=== PATIENT | male | born 1975 | race Caucasian/White ===

== ENCOUNTER 2016-08-17 15:44 | Emergency (ER) | payer OTHER ==
[~2016-08-17] VITALS: Ht 180.3 cm; Wt 113.6 kg
--- NOTE | 2016-08-17 15:48 | ED.REPORT ---
HPI-Chest Pain Under 40 Date of Service August 17, 2016 ED Provider: Salvatore Verdugo MD A 41 year old male with a history of hypertension on Lisinopril, anxiety, GERD and smoking is referred to the ED from Urgent Care due to chest pain onset 13: 30. The pt was doing some yard work today and began experiencing left arm numbness radiating into his jaw soon after finishing. This was followed by sharp chest pain and nausea that are still ongoing. The pt also admits to a dry cough that has been present for three weeks and occasional diaphoresis, though he does not believe that the diaphoresis is related to his symptoms. The pt recently began injecting prescribed testosterone, HCG and one other substance that he cannot recall. The pt had a normal stress test two years ago. Nursing Notes Stated Complaint: CHEST PAIN Nursing Notes Reviewed: Yes Allergies: Coded Allergies: amoxicillin (Verified Adverse Reaction, Intermediate, Nausea, 08/17/16) clavulanic acid (Verified Adverse Reaction, Intermediate, Nausea, 08/17/16) Scheduled ([testosterone]) IM DAILY Bupropion ER (Wellbutrin SR) 150 Mg Tablet.er 150 MG PO DAILY Esomeprazole Magnesium (Nexium) 20 Mg Capsule.dr 20 MG PO DAILY Hydrochlorothiazide (Hydrochlorothiazide) 25 Mg Tablet 25 MG PO DAILY Lisinopril (Lisinopril) 5 Mg Tablet 5 MG PO DAILY Montelukast (Montelukast) 10 Mg Tablet 10 MG PO DAILY Potassium Chloride (Potassium Chloride) 10 Meq Capsule.er 10 MEQ PO DAILY TAKE WITH FOOD Venlafaxine (Venlafaxine) 75 Mg Tablet 75 MG PO DAILY Scheduled PRN Zolpidem (Ambien) 10 Mg Tablet 10 MG PO HS PRN PRN Insomnia Miscellaneous Medications ([glu]) General Time Seen by MD: 15:47 Chief Complaint Chest pain Hx Obtained From: Patient Arrived By: Walk-in Sudden in Onset?: Yes Onset Occurred: 1 - 4 hours ago Symptom Duration: Since onset Recent Healthcare: No recent doctor visit, No recent hospitalization Similar Sx Previous: No Risk Factors HEART Score HEART for MACE: Mod index of susp (1), Normal ECG (0), Age under 45 (0), 1-2 CAD risk factors (1) HEART for MACE Score: 0-3 (low risk 0.9%-1.7%) PERC Rule PERC Result: All PERC criteria "No", PERC rule satisfied Well's Criteria for PE [facility]'s PE Score: 0-2 pts (low risk 3.6%) Past Medical History Past Medical History hypertension depression GERD anxiety Past Surgical History none reported Smoking History Current Every Day Smoker Social History Alcohol Use: 1-3 per week Ambulatory Status Independent Review of Systems Respiratory: Reports: Non-productive cough Cardiovascular: Reports: Chest pain GI: Reports: Nausea, Denies: Abdominal pain Skin: Reports Diaphoresis (occasional), Denies Rash Neurologic: Reports: Numbness Complete sys rev & neg: except as marked. Physical Exam Initial Vital Signs Vital Signs (First) Date Time Temp Pulse Resp B/P Pulse Ox O2 Delivery O2 Flow Rate FiO2 08/17/16 15:50 36.2 78 12 146/90 100 Room Air Initial VS: Reviewed General/Constitutional: Awake, Alert Respiratory / Chest: Atraumatic, Breath sounds NL, Breath sounds = bilat, No respiratory distress Cardiovascular: Heart rate NL, Regular rhythm, Heart sounds NL Neck: Atraumatic, Supple, Full range of motion Abdomen: Atraumatic, Soft, Non-tender Back: Atraumatic, Full range of motion Lower Extremity / Pelvis / MS: Atraumatic, Full range of motion trace edema bilaterally Skin: Atraumatic, Color NL, No rash, Warm, Dry Neurologic: Oriented X3, Speech NL, No motor deficits, No sensory deficits Psychiatric: Affect NL, Mood NL Head / Eyes: Atraumatic, Normocephalic, PERRL, EOMI ENT: Atraumatic, Airway patent, Mucous membranes moist Upper Extremity / MS: Atraumatic, Full range of motion Interpretation & Diagnostics Lab Results Interpretation Result Diagram: 08/17/16 1600 08/17/16 1600 Test 08/17/16 16:00 08/17/16 18:10 White Blood Count 12.6th/mm3 (3.8-10.1) Red Blood Count 5.63mil/mm3 (4.40-5.80) Hemoglobin 17.3g/dL (13.8-17.2) Hematocrit 49.5% (41.0-50.0) Mean Corpuscular Volume 87.9fL (81-100) Mean Corpuscular Hemoglobin 30.7pg (27.0-35.0) Mean Corpuscular Hemoglobin Concent 34.9% (32.0-37.0) Red Cell Distribution Width 13.7% (12.3-15.4) Platelet Count 199bil/L (150-400) Neutrophils (%) (Auto) 69.0% (40-74) Lymphocytes (%) (Auto) 20.5% (14-46) Monocytes (%) (Auto) 7.6% (4-12) Eosinophils (%) (Auto) 2.0% (0-5) Basophils (%) (Auto) 0.4% (0-3) Sodium Level 138mEq/L (134-144) Potassium Level 4.0mEq/L (3.5-5.2) Chloride Level 94mEq/L (97-108) Carbon Dioxide Level 27mmol/L (18-29) Blood Urea Nitrogen 12mg/dL (6-24) Creatinine 0.77mg/dL (0.76-1.27) Estimat Glomerular Filtration Rate 117mL/min (>59) Glucose Level 82mg/dL (60-99) Calcium Level 9.4mg/dL (8.5-10.1) Magnesium Level 1.6mg/dL (1.6-2.6) Total Bilirubin 0.5mg/dL (0.0-1.2) Aspartate Amino Transf (AST/SGOT) 49U/L (0-50) Alanine Aminotransferase (ALT/SGPT) 55U/L (0-44) Alkaline Phosphatase 63U/L (25-150) Total Protein 7.4g/dL (6.4-8.4) Albumin 4.3g/dL (3.4-5.0) Hold Peoples Top Tube Received (Received) Troponin T < 0.010ug/L (0.0-0.011) ECG Interpretation ECG Interpretation: normal sinus rhythm with a rate of 75 abnormal R-wave progression, early transition Time: 15:55 Interpreted by: ED physician X-Ray Chest Interpretation Chest Xray Interpretation: IMPRESSION: 1. No acute cardiopulmonary findings. 2. Subtle right basilar radiopacities. Short interval followup is recommended to ensure resolution of this finding and exclude underlying pulmonary pathology. Dictated by: Mary Murphy M.D. on 08/17/2016 at 16:28 Approved by: Mary Murphy M.D. on 08/17/2016 at 16:29 Interpretation / Wet Read by: Interpret - Radiologist Re-Eval/Medical Decision Med Decision/Clinical Course I think outpatient follow-up is reasonable given the gentleman's low HEART score and 2 negative troponins and resolution of symptoms and negative EKG. Source of Hx: Old records Re-Evaluation/Progress #1: Time of Eval: 17:34 Re-Evaluation/Progress Note: Pt rechecked, who is resting comfortably and pain free. He is informed of his radiolgy results and the plan for further treatment. Re-Evaluation/Progress #2: Time of Eval: 18:59 Patient Status: Condition resolved Re-Evaluation/Progress Note: Patient requests discharge for outpatient workup. Counseled Regarding: Diagnosis, Lab results, Need for follow-up, When/why to return to ED Discharge & Departure Primary Impression: Chest pain Disposition: Home Discharge Condition All VS Reviewed: Yes Condition: Stable Patient Instructions: Chest Pain (ED) Additional Instructions: No evidence of heart attack at this time. However, I am concerned about the nature of her symptoms and her descriptions thereof. I do believe that further evaluation is warranted. Follow-up at the clinic early next week for further evaluation as indicated. I recommended aspirin 325 mg daily in the meantime. Return to the emergency department for recurrent chest pain. I would limit your activity until seen by your primary care provider in the coming days. Referrals: Frankie Farr MD (PCP) [place] Attestation Portions of this note were transcribed by Angie Savage. I, Dr. Verdugo personally performed the history, physical exam and medical decision-making; I reviewed and confirmed the accuracy of the information in the transcribed note. Signed by: Garrison Barrera, 08/17/16 and 1910. copies to: Frankie Farr MD, Kirk H MD August 17, 2016 15:48 ANGIE SAVAGE August 17, 2016 15:57
[2016-08-17 15:50] VITALS: BP 146/90; PULSE 78; RESP 12; O2SAT 100
[2016-08-17] MEDS ORDERED: VENL75TA3 PO (16:09)
[2016-08-17] MEDS ORDERED: POTA10CA42 PO (16:09)
[2016-08-17] MEDS ORDERED: MONT10TA23 PO (16:09)
[2016-08-17] MEDS ORDERED: [UNRECOGNIZED DRUG - OTHER] (16:09)
[2016-08-17] MEDS ORDERED: HYDR25TA4 PO (16:09)
[2016-08-17] MEDS ORDERED: ZLP10T PO (16:09)
[2016-08-17] MEDS ORDERED: LISI-571 PO (16:09)
[2016-08-17] MEDS ORDERED: testosterone IM (16:09)
[2016-08-17] MEDS ORDERED: ESOM20CA28 PO (16:09)
[2016-08-17] MEDS ORDERED: BUPR150T8 PO (16:09)
[2016-08-17 16:19] LABS: BASOPHILS % (AUTO) 0.4 % (0-3); MONOCYTES % (AUTO) 7.6 % (4-12); Mean Corpuscular Hemoglobin 30.7 pg (27.0-35.0); Mean Corpuscular Volume 87.9 fL (81-100); Platelet Count 199 bil/L (150-400)
[2016-08-17] MEDS ORDERED: MeTOProlol 1 mg/mL 5 mL Inj IVPUSH PRN (16:25)
--- NOTE | 2016-08-17 16:30 | DRSVH ---
PROCEDURE: X-RAY CHEST ONE VIEW, PORTABLE ([id number]) INDICATIONS: CHEST PAIN TECHNIQUE: One view of the chest was acquired. COMPARISON: [facility], , CHEST 2VW, 01/09/2012, 15:16. FINDINGS: Surgical changes and devices: None. Lungs and pleura: Ill-defined pulmonary opacities are present at the right lung base. The lungs are o therwise clear. No effusion or pneumothorax. Mediastinum: Mediastinal contours appear normal. Heart size is normal. Bones and chest wall: No suspicious bony lesions. Overlying soft tissues appear unremarkable. IMPRESSION: 1. No acute cardiopulmonary findings. 2. Subtle right basilar radiopacities. Short interval followup is recommended to ensure resolution of this finding and exclude underlying pulmonary pathology. Dictated by: Mary Murphy M.D. on 08/17/2016 at 16:28 Approved by: Mary Murphy M.D. on 08/17/2016 at 16:29
[2016-08-17 16:37] VITALS: BP 132/84; PULSE 75; RESP 14; O2SAT 97
[2016-08-17 16:40] LABS: TROPONIN T < 0.010 ug/L (0.0-0.011)
[2016-08-17 16:50] LABS: Magnesium 1.6 mg/dL (1.6-2.6)
[2016-08-17 17:54] VITALS: BP 135/78; PULSE 78; O2SAT 97
[2016-08-17 19:30] VITALS: BP 128/78; PULSE 72; RESP 19; O2SAT 97
== END 2016-08-17 19:25 | disposition home or self-care (01) ==
LOC: SED 15:44
DX: R07.9 Chest pain, unspecified (principal); R11.0 Nausea; R20.2 Paresthesia of skin; R05 Cough; I10 Essential (primary) hypertension; F32.9 Major depressive disorder, single episode, unspecified; K21.9 Gastro-esophageal reflux disease without esophagitis; F41.9 Anxiety disorder, unspecified; F17.200 Nicotine dependence, unspecified, uncomplicated; Z88.0 Allergy status to penicillin